=== PATIENT | female | born 1970 | race Caucasian/White ===

== ENCOUNTER 2017-01-05 19:37 | Emergency (ER) | payer MEDICARE, SELFPAY ==
[~2017-01-05] VITALS: Ht 167.6 cm; Wt 97.9 kg
[~2017-01-05 19:37] MED LIST: ACET65TA OR; CALCTAB22 PO; CIPR500T19 OR; FLAG500T OR; MULTIVIT PO; metamucil PO; pentasa PO
[2017-01-05] MEDS ORDERED: ESTR2TA (19:44)
[2017-01-05] MEDS ORDERED: CITA40TA4 (19:44)
[2017-01-05] MEDS ORDERED: MERC50TA2 (19:44)
[2017-01-05] MEDS ORDERED: methylPREDNISolone INJ 125 MG/2 ML VIAL (J2930) IV ONE (20:15)
[2017-01-05] MEDS ORDERED: NS 1,000 ML IV ONE (20:15)
[2017-01-05] MEDS ORDERED: KETOROLAC 30 MG/ML VIAL (J1885) IV ONE (20:15)
[2017-01-05] MEDS ORDERED: NORCO, ANEXSIA 5/325MG TABLET (HYDROcodone/ACETAMINOPHEN) PO ONE ×2 (20:15→22:45)
[2017-01-05 20:41] LABS: BASO % 0.2 % (0.0-1.0); EOS # 0.1 K/mm3 (0.0-0.50); EOS % 1.1 % (0.0-3.0); LARGE UNSTAINED CELL # 0.1 K/mm3 (0.0-0.4); LARGE UNSTAINED CELL % 1.1 % (0.0-4.0); LYMPH # 1.3 K/mm3 (1.5-4.5); LYMPH % 11.8 % (24.0-44.0); MEAN CORPUSCULAR HEMOGLOBIN 33.5 pg (27.0-33.0); MEAN CORPUSCULAR HGB CONC 35.8 g/dl (32.0-36.5); MEAN CORPUSCULAR VOLUME 93.5 fl (80.0-96.0); MONO # 0.5 K/mm3 (0.0-0.8); MONO % 4.7 % (0.0-5.0); NEUTROPHILS # 8.1 K/mm3 (1.8-7.7); NEUTROPHILS % 81.1 % (36.0-66.0); PLATELET COUNT, AUTOMATED 234 k/mm3 (150-450); RED CELL DISTRIBUTION WIDTH 13.3 % (11.5-14.5); WHITE BLOOD COUNT 9.9 K/mm3 (4.0-10.0)
[2017-01-05 20:48] LABS: CALCIUM OXALATE CRYSTALS LARGE
[2017-01-05 20:56] LABS: ALBUMIN 4.1 GM/DL (3.2-5.2); ALBUMIN/GLOBULIN RATIO 1.21 (1.00-1.93); ALKALINE PHOSPHATASE 56 U/L (45-117); ALT/SGPT 74 U/L (12-78); ANION GAP 8 MEQ/L (8-16); AST/SGOT 21 U/L (15-37); BILIRUBIN,DIRECT 0.2 MG/DL (0.0-0.2); BLOOD UREA NITROGEN 10 MG/DL (7-18); CALCIUM LEVEL 9.4 MG/DL (8.5-10.1); CARBON DIOXIDE LEVEL 29 MEQ/L (21-32); CHLORIDE LEVEL 103 MEQ/L (98-107); CREATININE FOR GFR 0.76 MG/DL (0.55-1.02); GLOMERULAR FILTRATION RATE > 60.0 (>58); GLUCOSE, FASTING 104 MG/DL (70-105); POTASSIUM SERUM 3.5 MEQ/L (3.5-5.1); SODIUM LEVEL 140 MEQ/L (136-145); TOTAL PROTEIN 7.5 GM/DL (6.4-8.2)
[2017-01-05] MEDS ORDERED: PANTOPRAZOLE 40MG INJ (PROTONIX) (C9113) IV ONE (21:00)
--- NOTE | 2017-01-05 22:20 | REPUSA ---
Clinical history: hematuria. Findings: The urinary bladder is contracted, but appears unremarkable. No urinary bladder masses are seen. The right kidney measures 13.1 x 5.1 x 5.6 cm. There is a 3.6 cm cyst in the right kidney. The left kidney measures. 14.6 x 6.4 x 5.8 Cm. The kidneys demonstrate normal echotexture and echogenici ty. There is no evidence of hydronephrosis or nephrolithiasis. No renal masses are seen. No free flui d is appreciated. Impression: Unremarkable ultrasound examination of the kidneys, other than a simple right renal cyst.
[2017-01-05] MEDS ORDERED: PRED20TA PO (22:37)
[2017-01-05] MEDS ORDERED: NORCOTAB PO (22:37)
[2017-01-05 22:42] VITALS: BP 132/93
== END 2017-01-05 22:54 | disposition home or self-care (01) ==
LOC: M ED 20:42
DX: R10.9 Unspecified abdominal pain (principal); N28.1 Cyst of kidney, acquired; Z87.19 Personal history of other diseases of the digestive system; F32.9 Major depressive disorder, single episode, unspecified; Z79.899 Other long term (current) drug therapy; Z88.1 Allergy status to other antibiotic agents
CPT/HCPCS: 76775; 80048; 80076; 81001; 83605; 83690; 85025; 86140; 96374; 96375; 99284; C9113; J1885; J2930

== ENCOUNTER → 2019-03-26 | Outpatient (CLI) | payer OTHER ==
[~2019-03-26] MED LIST changes: +ACET650T15 PO; +CALC500T44 PO; +CARB200T98 PO; +CITA40TA4; +CITA40TA4 PO; +CYCL5TAB PO; +ESTR2TAB2; +ESTR2TAB2 PO; +HYDR-3713 PO; +HYDR-3715 PO; +KETO10TAB PO; +LOPE2CA PO; +MERC50TA2; +MERC50TA2 PO; +MULTCAP PO; +PENI500T; +PRED20TA PO; +QC F0.52 PO
== END ==
LOC: M LAB 11:28
PROVIDERS: ATTEND Internal Medicine Gastroenterology
DX: K50.018 Crohn's disease of small intestine with other complication (principal)

== ENCOUNTER 2019-03-29 21:47 | Emergency (ER) | payer OTHER ==
[~2019-03-29] VITALS: Ht 167.6 cm; Wt 98.2 kg
[~2019-03-29 21:47] MED LIST changes: -ACET650T15 PO; -CALC500T44 PO; -CARB200T98 PO; -CITA40TA4 PO; -CYCL5TAB PO; -ESTR2TAB2 PO; -HYDR-3713 PO; -KETO10TAB PO; -LOPE2CA PO; -MERC50TA2 PO; -MULTCAP PO; -PENI500T; -QC F0.52 PO
[2019-03-29] MEDS ORDERED: PENI500T (21:57)
[2019-03-29] MEDS: CYCLOBENZAPRINE 10 MG TAB PO ONE (22:46)
[2019-03-29] MEDS: KETOROLAC TROMETHAMINE 10 MG TAB PO ONE (22:46)
[2019-03-29 23:00] LABS: BASO % 0.4 % (0.0-1.0); EOS # 0.1 10^3/uL (0.0-0.5); EOS % 0.9 % (0.0-3.0); HEMATOCRIT 46.5 % (36.0-47.0); HEMOGLOBIN 16.2 g/dl (12.0-15.5); LYMPH # 1.8 10^3/uL (1.5-5.0); LYMPH % 20.1 % (24.0-44.0); MEAN CORPUSCULAR HEMOGLOBIN 32.1 pg (27.0-33.0); MEAN CORPUSCULAR HGB CONC 34.8 g/dl (32.0-36.5); MEAN CORPUSCULAR VOLUME 92.1 fl (80.0-96.0); MONO # 0.5 10^3/uL (0.0-0.8); MONO % 5.1 % (0.0-5.0); NEUTROPHILS # 6.7 10^3/uL (1.5-8.5); PLATELET COUNT, AUTOMATED 323 10^3/uL (150-450); RED BLOOD COUNT 5.05 10^6/uL (4.00-5.40); WHITE BLOOD COUNT 9.1 10^3/uL (4.0-10.0)
[2019-03-29 23:20] LABS: MONO SCRN NEGATIVE (NEGATIVE)
[2019-03-29] MEDS: BUPIVACAINE HCL 0.25% 10 ML VIAL IM ONE (23:59)
[2019-03-30] MEDS ORDERED: CYCL5TAB PO (00:12)
[2019-03-30] MEDS ORDERED: KETO10TAB PO (00:12)
[2019-03-30 00:24] VITALS: BP 137/92
== END 2019-03-30 00:29 | disposition home or self-care (01) ==
LOC: M ED 21:47
DX: M62.838 Other muscle spasm (principal); M54.2 Cervicalgia; F32.9 Major depressive disorder, single episode, unspecified; Z79.899 Other long term (current) drug therapy; Z88.1 Allergy status to other antibiotic agents; Z87.09 Personal history of other diseases of the respiratory system; Z86.19 Personal history of other infectious and parasitic diseases

== ENCOUNTER → 2019-04-12 | Outpatient (CLI) | payer OTHER ==
[~2019-04-12] MED LIST changes: +ACET650T15 PO; +CALC500T44 PO; +CARB200T98 PO; +CITA40TA4 PO; +CYCL5TAB PO; +ESTR2TAB2 PO; +HYDR-3713 PO; +KETO10TAB PO; +LOPE2CA PO; +MERC50TA2 PO; +MULTCAP PO; +PENI500T; +QC F0.52 PO
--- NOTE | 2019-04-13 07:54 | REP ---
CERVICAL SPINE COMPLETE: 04/12/2019. Clinical history: Neck pain. Findings: No prior studies. Eight views are provided. Lateral view shows slight loss of lordosis. Flexion and extension views show adequate range of motion but no instability. C1-2 relationships are normal throughout and stable. Craniocervical junction aligns normally. Vertebral body heights, disc space heights and prevertebral soft tissues are unremarkable. Posterior elements grossly intact. Dens and lateral masses align normally on the open-mouth view AP view shows no torticollis. Posterior elements intact. The bilateral foramina are ample. Impression: 1. Slight loss of lordosis on the lateral view but good range of motion with flexion and extension. No instability. The C1-2 relationships normal throughout. 2. Disc space heights normal. No compression deformity. 3. Foramina ample. Nothing acute. Electronically Signed by Daryn Delgado MD 04/13/2019 09:21 A
== END ==
LOC: M RAD 09:34
PROVIDERS: ATTEND Internal Medicine
DX: M54.2 Cervicalgia (principal)

== ENCOUNTER 2019-04-13 18:50 | Inpatient (IN) | payer OTHER ==
[~2019-04-13] VITALS: Ht 167.6 cm; Wt 97.8 kg
[~2019-04-13 18:50] MED LIST changes: -ACET650T15 PO; -CALC500T44 PO; -CARB200T98 PO; -CITA40TA4 PO; -ESTR2TAB2 PO; -HYDR-3713 PO; -LOPE2CA PO; -MERC50TA2 PO; -MULTCAP PO; -QC F0.52 PO
[2019-04-13] MEDS ORDERED: CARB200T98 PO (18:57)
[2019-04-13 20:16] LABS: BASO % 0.4 % (0.0-1.0); EOS # 0.1 10^3/uL (0.0-0.5); HEMATOCRIT 46.7 % (36.0-47.0); HEMOGLOBIN 15.9 g/dl (12.0-15.5); LYMPH # 1.9 10^3/uL (1.5-5.0); LYMPH % 27.4 % (24.0-44.0); MEAN CORPUSCULAR HEMOGLOBIN 31.9 pg (27.0-33.0); MEAN CORPUSCULAR VOLUME 93.6 fl (80.0-96.0); MONO # 0.4 10^3/uL (0.0-0.8); MONO % 5.6 % (0.0-5.0); NEUTROPHILS # 4.4 10^3/uL (1.5-8.5); NEUTROPHILS % 65.2 % (36.0-66.0); PLATELET COUNT, AUTOMATED 266 10^3/uL (150-450); RED BLOOD COUNT 4.99 10^6/uL (4.00-5.40); WHITE BLOOD COUNT 6.7 10^3/uL (4.0-10.0)
[2019-04-13] MEDS ORDERED: NS 500 ML IV ONE (20:30)
[2019-04-13] MEDS ORDERED: HYDROMORPHONE HCL 0.5 MG/ 0.5 ML SYRINGE (J1170 PER 1) IV ONE (20:30)
[2019-04-13 20:45] LABS: ALBUMIN 3.1 GM/DL (3.2-5.2); ALT/SGPT 19 U/L (12-78); AMYLASE 30 U/L (25-115); BILIRUBIN,DIRECT < 0.1 MG/DL (0.0-0.2); BILIRUBIN,TOTAL 0.3 MG/DL (0.2-1.0); LIPASE 124 U/L (73-393); TOTAL PROTEIN 6.7 GM/DL (6.4-8.2)
[2019-04-13] MEDS: METAMUCIL (PSYLLIUM) PACKET PO SCH (21:00)
[2019-04-13] MEDS: GASTROGRAFIN SOLUTION 30ML PO SCH ×2 (21:07→21:39)
[2019-04-13 21:48] LABS: BLOOD UREA NITROGEN 12 MG/DL (7-18); CALCIUM LEVEL 8.8 MG/DL (8.5-10.1); CARBON DIOXIDE LEVEL 31 MEQ/L (21-32); CHLORIDE LEVEL 105 MEQ/L (98-107); GLOMERULAR FILTRATION RATE > 60.0 (>58); GLUCOSE, FASTING 97 MG/DL (70-100); SODIUM LEVEL 142 MEQ/L (136-145)
[2019-04-13] MEDS ORDERED: ISOVUE-370 76% 100ML VIAL (Q9967) As Ordered ONE (22:23)
--- NOTE | 2019-04-13 23:59 | REPVR ---
PROCEDURE INFORMATION: Exam: CT Abdomen and pelvis with contrast Exam date and time: 04/13/2019 10:27 PM Clinical history: 48 years old, female; Abdominal pain; Additional info: Crohn's/pain TECHNIQUE: Imaging protocol: Computed tomography of the abdomen and pelvis with intravenous contrast. Radiation optimization: All CT scans at this facility use at least one of these dose optimization techniques: automated exposure control; mA and/or kV adjustment per patient size (includes targeted exams where dose is matched to clinical indication); or iterative reconstruction. Contrast material: ISO 370; Contrast volume: 100 ml; Contrast route: IV; COMPARISON: US PELVIC NON-OB COMPLETE 01/27/2016 1:33 PM FINDINGS: Liver: Normal. No mass. Gallbladder and bile ducts: Normal. No calcified stones. No ductal dilation. Pancreas: Normal. No ductal dilation. Spleen: Normal. No splenomegaly. Adrenals: Normal. No mass. Kidneys and ureters: There is a cyst in the right kidney. Kidneys are otherwise unremarkable. No hydronephrosis or solid masses. Stomach and bowel: Prior subtotal colectomy. Small bowel loops in the pelvis are mildly thickwalled with mucosal enhancement and are distended with some intraluminal fluid. The distal small bowel leading to the enterocolic anastomosis is narrowed with some mural edema and mild stranding in the adjacent mesentery. Some areas of segmental narrowing are noted in the thickwalled segment in the pelvis. Similar milder changes in the right lower quadrant small bowel. Proximal small bowel loops and stomach are grossly unremarkable. Mild diverticulosis in the residual colon without colonic dilation or inflammatory changes. Midline anterior abdominal wall hernia containing peritoneal fat and nonobstructed small bowel. Appendix: There has been prior appendectomy. Intraperitoneal space: Unremarkable. No free air. No significant fluid collection. Vasculature: Unremarkable. No abdominal aortic aneurysm. Lymph nodes: Unremarkable. No enlarged lymph nodes. Bladder: Unremarkable as visualized. Reproductive: Unremarkable as visualized. Bones/joints: There are degenerative changes in the spine and pelvis. Soft tissues: Unremarkable. IMPRESSION: 1. Wall thickening with areas of dilated fluid-filled small bowel and mild segmental narrowing in the distal small bowel consistent with history of Crohn's disease. 2. Long segment stricture of the distal small bowel at the enterocolic anastomosis measuring approximate 6 cm. 3. No perforation or abscess. COMMENT: Consistent with the [employer]'s Incidental Findings Committee Report (J Am Moises Radiol 2010): Unless the patient's specific circumstances suggest otherwise, any liver lesion 0.5 cm or less, any cystic kidney lesion less than 1.0 cm, and/or any adrenal lesion 1.0 cm or less not otherwise characterized in this report as possessing suspicious or indeterminate imaging features is/are highly likely to be benign and do not require follow-up imaging or biopsy. Electronically signed by: Itz Fontenot On 04/13/2019 23:58:57 PM
[2019-04-14] MEDS ORDERED: HYDROMORPHONE HCL 0.5 MG/ 0.5 ML SYRINGE (J1170 PER 1) IV ONE (00:15)
[2019-04-14] MEDS ORDERED: MULTCAP PO (00:15)
[2019-04-14] MEDS ORDERED: MERC50TA2 PO (00:30)
[2019-04-14] MEDS ORDERED: CALC500T44 PO (00:30)
[2019-04-14] MEDS ORDERED: CITA40TA4 PO (00:30)
[2019-04-14] MEDS ORDERED: D5W/0.9% SODIUM CHLORIDE 1,000 ML IV SCH (00:30)
[2019-04-14] MEDS ORDERED: ESTR2TAB2 PO (00:30)
[2019-04-14] MEDS ORDERED: ACET650T15 PO (00:30)
[2019-04-14] MEDS ORDERED: QC F0.52 PO (00:30)
--- NOTE | 2019-04-14 00:32 | HPEPDOC ---
[facility] Medical History & Physical Date of Admission Apr 14, 2019 Date of Service: Apr 14, 2019 Primary Care Physician: Maxim Smith MD [facility] Attending Physician: SAVANAH HUGO MD History and Physical TIME OF SERVICE: 12:55 AM CHIEF COMPLAINT: abdominal pain HISTORY OF PRESENT ILLNESS: This is a 48 yr old F who presents with complaints of 7/10 in severity, mid- abdominal, nonradiating, relapsing and remitting pain. She has had the pain for a few days but came to the hospital today because the pain became so bad that she became nauseous. She denies vomiting and denies having fevers. On average she has 6 bowel movements per day and denies an increase in frequency of bowel movements over the last few days. Yesterday she didn't take any of her medications including mercaptopurine. She doesn't take loperamide and uses fiber capsules. She reports having constant hip pain which hasn't changed in severity, denies having eye pain or sensitivity to light, denies having a rash, and denies having anal fissures recently. She had oral ulcers about a week ago which she attributes to having strep throat. REVIEW OF SYSTEMS: 12 point review of systems negative except as listed in HPI PAST MEDICAL/ SURGICAL HISTORY: Crohn s/p right hemicolectomy Nephrolithiasis status post lithotripsy History of renal fistula Denies personal history of diabetes, CVA, or IA SOCIAL HISTORY: Smoker. Quit drinking because it made her chronic stomach pain worse Occasionally uses marijuana to control stomach pain FAMILY HISTORY: Her aunt has diabetes. She denies a family history of Crohn's ALLERGIES: Please see below. HOME MEDICATIONS: Please see below. PHYSICAL EXAMINATION: VITAL SIGNS: Please see below. GENERAL APPEARANCE: Well-nourished, well-developed, does not appear toxic HEENT: Normocephalic, atraumatic, mucous membranes moist and pink CARDIOVASCULAR: Regular rate and rhythm. No murmurs, rubs or gallops LUNGS: Clear auscultation bilaterally on room air ABDOMEN: Bowel sounds are present, the abdomen is tympanic on percussion, it's soft, she grimaces with palpation of the epigastrium MUSCULOSKELETAL: Range of motion intact in all 4 extremities INTEGUMENT: She has tattoos on her legs, NEUROLOGICAL: Cranial nerves II-12 are grossly intact. Speech is not dysarthric PSYCHIATRIC: Alert and oriented person, place and time, able to understand and follow commands LABORATORY DATA: See below. IMAGING: CT abdomen "IMPRESSION: 1. Wall thickening with areas of dilated fluid-filled small bowel and mild segmental narrowing in the distal small bowel consistent with history of Crohn's disease. 2. Long segment stricture of the distal small bowel at the enterocolic anastomo sis measuring approximate 6 cm. 3. No perforation or abscess. " MICROBIOLOGY: Please see below. ASSESSMENT: Ms. Gomez is a 48-year-old female with a past medical history of Crohn's presents with complaints of worsening of her acute abdominal pain; she'll be admitted for management of abdominal pain possibly due to mild Crohn's flare PLAN: 1.Abdominal pain possibly due to mild Crohn's flare ? She didn't take her meds today. LFTs, UA and lactic acid unremarkable CT of abdomen did not show any acute process Crohn's Disease Activity Index (CDAI) score = 132 = asymptomatic remission Plan: Admit to GMF/ low residue diet/IV fluids/will give 1 dose of Solu-Medrol now / resume mercaptopurine & psyllium/ add loperamide / Ibuprofen for abdominal pain / supervisor slitting and shipping consult to discuss Crohn's diet / SW consult for referal to local IBD/Crohn's support group 2.Tobacco abuse. Plan: Denied nicotine patch patch/tobacco cessation education 3.Obesity -BMI 33.8 Plan: f/u A1C / can f/u w PCP for STOP BANG questionnaire supervisor slitting and shipping consult & referral for Bariatric surgery / recommend cardiovascular exercise for 40 min 4- 5 days a week DVT prophylaxis with SCDs. Disposition: Pending clinical course Vital Signs Vital Signs Date Time Temp Pulse Resp B/P (MAP) Pulse Ox O2 Delivery O2 Flow Rate FiO2 04/14/19 00:16 18 04/13/19 23:43 96.5 68 110/73 (85) 98 04/13/19 18:51 Room Air Laboratory Data Labs 24H Laboratory Tests 2 04/13/19 19:51: POC Glucose (Misc Panel) 103, POC Sodium (Misc Panel) 138, POC Potassium (Misc Panel) 6.5*H, POC Chloride (Misc Panel) 101, POC Total CO2 (Misc Panel) 34.0H, POC Blood Urea Nitrogen (Misc Panel 16, POC Ionized Calcium (Misc Panel) 4.2L, POC Creatinine (Misc Panel) 0.7, POC Hematocrit (Misc Panel) 45.0 04/13/19 19:52: Immature Granulocyte % (Auto) 0.4, White Blood Count 6.7, Red Blood Count 4.99, Hemoglobin 15.9H, Hematocrit 46.7, Mean Corpuscular Volume 93.6, Mean Corpuscular Hemoglobin 31.9, Mean Corpuscular Hemoglobin Concent 34.0, Red Cell Distribution Width 13.1, Platelet Count 266, Neutrophils (%) (Auto) 65.2, Lymphocytes (%) (Auto) 27.4, Monocytes (%) (Auto) 5.6H, Eosinophils (%) (Auto) 1.0, Basophils (%) (Auto) 0.4, Neutrophils # (Auto) 4.4, Lymphocytes # (Auto) 1.9, Monocytes # (Auto) 0.4, Eosinophils # (Auto) 0.1, Basophils # (Auto) 0.0, Nucleated Red Blood Cells % (auto) 0.0, Anion Gap 6L, Glomerular Filtration Rate > 60.0, Calcium Level 8.8, Aspartate Amino Transf (AST/SGOT) 22, Alanine Aminotransferase (ALT/SGPT) 19, Alkaline Phosphatase 71, Total Bilirubin 0.3, Direct Bilirubin < 0.1, Total Protein 6.7, Albumin 3.1L, Albumin/Globulin Ratio 0.86L, Amylase Level 30, Lipase 124 04/13/19 22:52: Urine Color YELLOW, Urine Appearance CLEAR, Urine pH 6.0, Urine Specific [place] 1.053, Urine Protein NEGATIVE, Urine Glucose (UA) NEGATIVE, Urine Ketones NEGATIVE, Urine Blood 2+H, Urine Nitrite NEGATIVE, Urine Bilirubin NEGATIVE, Urine Urobilinogen 0.2, Urine Leukocyte Esterase NEGATIVE, Urine WBC (Auto) 0, Urine RBC (Auto) 19H, Urine Hyaline Casts (Auto) 0, Urine Bacteria (Auto) NEGATIVE, Urine Squamous Epithelial Cells 5, Urine Sperm (Auto) CBC/BMP Laboratory Tests 04/13/19 19:52 Red Blood Count 4.99, Mean Corpuscular Volume 93.6, Mean Corpuscular Hemoglobin 31.9, Mean Corpuscular Hemoglobin Concent 34.0, Red Cell Distribution Width 13.1, Neutrophils (%) (Auto) 65.2, Lymphocytes (%) (Auto) 27.4, Monocytes (%) (Auto) 5.6 H, Eosinophils (%) (Auto) 1.0, Basophils (%) (Auto) 0.4, Neutrophils # (Auto) 4.4, Lymphocytes # (Auto) 1.9, Monocytes # (Auto) 0.4, Eosinophils # (Auto) 0.1, Basophils # (Auto) 0.0 Home Medications Scheduled Calcium Carbonate/Vitamin D3 (Calcium 500-Vit D3 200 Tablet) 1 Each Tablet, 1 TAB PO DAILY Carbamazepine (Carbamazepine ER) 200 Mg Tab.er.12h, 200 MG PO BID Citalopram Hydrobromide (Citalopram HBr) 40 Mg Tablet, 40 MG PO DAILY Estradiol (Estradiol) 2 Mg Tablet, 2 MG PO DAILY Mercaptopurine (Mercaptopurine) 50 Mg Tablet, 50 MG PO DAILY Multivitamin (Multivitamins) 1 Each Capsule, 1 CAP PO DAILY Psyllium Husk (Fiber) 0.52 Gm Capsule, 0.52 GM PO DAILY Scheduled PRN Acetaminophen (Acetaminophen ER) 650 Mg Tablet.er, 650 MG PO Q6H PRN for PAIN Allergies Coded Allergies: erythromycin base (Verified Allergy, Intermediate, rash, 03/29/19) A-FIB/CHADSVASC A-FIB History Current/History of A-Fib/PAF?: No Current PO Anticoag Therapy: No SAVANAH HUGO MD Apr 14, 2019 00:32
[2019-04-14] MEDS ORDERED: methylPREDNISolone INJ 125 MG/2 ML VIAL (J2930) IV ONE (00:45)
[2019-04-14] MEDS: NS 1,000 ML IV SCH ×3 (01:03→13:52)
[2019-04-14 02:32] VITALS: BP 112/82
[2019-04-14] MEDS: LOPERAMIDE 2 MG CAP PO SCH ×3 (02:45→21:54)
[2019-04-14] MEDS: carBAMazepine XR 200 MG TAB PO SCH ×3 (02:47→21:54)
[2019-04-14] MEDS: ACETAMINOPHEN 650MG ER TAB (TYLENOL ARTHRITIS) PO PRN ×2 (05:54→21:54)
[2019-04-14] MEDS: IBUPROFEN 600 MG TAB PO PRN ×2 (05:54→21:54)
[2019-04-14 06:00] VITALS: BP 113/82
[2019-04-14 06:41] LABS: BASO % 0.1 % (0.0-1.0); EOS % 0.1 % (0.0-3.0); HEMATOCRIT 41.2 % (36.0-47.0); HEMOGLOBIN 14.1 g/dl (12.0-15.5); LYMPH # 0.5 10^3/uL (1.5-5.0); LYMPH % 7.5 % (24.0-44.0); MEAN CORPUSCULAR HEMOGLOBIN 31.5 pg (27.0-33.0); MEAN CORPUSCULAR HGB CONC 34.2 g/dl (32.0-36.5); MEAN CORPUSCULAR VOLUME 92.2 fl (80.0-96.0); MONO # 0.1 10^3/uL (0.0-0.8); MONO % 1.2 % (0.0-5.0); NEUTROPHILS # 6.3 10^3/uL (1.5-8.5); NEUTROPHILS % 90.8 % (36.0-66.0); PLATELET COUNT, AUTOMATED 224 10^3/uL (150-450); RED BLOOD COUNT 4.47 10^6/uL (4.00-5.40)
[2019-04-14 07:10] LABS: BLOOD UREA NITROGEN 8 MG/DL (7-18); CALCIUM LEVEL 8.6 MG/DL (8.5-10.1); CARBON DIOXIDE LEVEL 31 MEQ/L (21-32); CHLORIDE LEVEL 105 MEQ/L (98-107); CREATININE FOR GFR 0.63 MG/DL (0.55-1.30); GLOMERULAR FILTRATION RATE > 60.0 (>58); GLUCOSE, FASTING 124 MG/DL (70-100); POTASSIUM SERUM 4.5 MEQ/L (3.5-5.1); SODIUM LEVEL 139 MEQ/L (136-145)
[2019-04-14] MEDS: METAMUCIL (PSYLLIUM) PACKET PO SCH ×2 (09:00→21:00)
[2019-04-14] MEDS ORDERED: INFLUENZA QUADRIVALENT PEDIATRIC PF VACCINE 0.25ML SYR (90685) IM ONE (09:00)
[2019-04-14] MEDS ORDERED: ENOXAPARIN 40 MG/0.4 ML SYRINGE (J1650) SC SCH (09:00)
[2019-04-14] MEDS ORDERED: INFLUENZA QUADRIVALENT PF VACCINE 0.5ML SYRINGE (90686) IM ONE (09:00)
[2019-04-14] MEDS: ESTRADIOL 1 MG TAB PO SCH (09:26)
[2019-04-14] MEDS: CitaloPRAM (CeleXA) 20 MG TAB PO SCH (09:26)
[2019-04-14] MEDS: CALCIUM/VITAMIN D 500 MG TAB PO SCH (09:26)
[2019-04-14 13:59] VITALS: BP 132/88
[2019-04-14] MEDS ORDERED: PERCOCET 5MG/325MG TAB PO ONE (16:00)
--- NOTE | 2019-04-14 16:41 | IPNPDOC ---
Date Seen The patient was seen on 04/14/19. Progress Note SUBJECTIVE: Mer was seen and examined today while lying upright in bed. She states that her overall pain has significantly improved from where it was upon presentation yesterday (04/13). She does currently feel "full" after eating Cheerios, toast and north for breakfast. Soon after breakfast, she did have some post-meal abdominal pain in the same distribution of her abdominal pain yesterday, but it resolved. She has resumed taking her mercaptopurine and is now also taking loperamide. She denies Metamucil. She is using ibuprofen and Tylenol for abdominal pain. Patient has not had any bowel movements since admission. The day before her ED presentation, she had an overabundance of BMs. She denies feeling feverish, chills, night sweats, chest pain, chest pressure, palpitations, shortness of breath, cough, feeling nauseated, vomiting, dysuria, hematuria, lower extremity edema, or paresthesias. OBJECTIVE PHYSICAL EXAMINATION: VITAL SIGNS: Please see below. GENERAL: Mer is a cooperative, awake, alert and oriented 3, middle-age woman who does not appear to be in any acute distress. She is resting comfortably in bed. She responds to questions and commands properly. HEENT: Atraumatic, normocephalic. Neck is supple. Trachea is midline. There is no cervical or supraclavicular lymphadenopathy on palpitation. CARDIOVASCULAR: Regular rate and rhythm. Normal S1, S2. No murmurs or gallops appreciated. 2+ radial and posterior tibial pulses palpated bilaterally. No lower extremity edema. RESPIRATORY: Lungs are clear to auscultation bilaterally, anteriorly and posteriorly. There is good respiratory effort. There is symmetric chest expansion. There is no visible accessory muscle use. There are no retractions. ABDOMINAL: Soft, obese, and nondistended. Right lower quadrant is tender to deep palpation. There are abdominal striae present on inspection. There is no rebou nd, guarding or rigidity. There is no dullness to percussion. Normoactive bowel sounds are present. There is no hepatomegaly or splenomegaly. There are no masses appreciated on palpation. EXTREMITIES: 5 out of 5 muscle strength testing upper extremities and lower extremities bilaterally. There is no clubbing or cyanosis of fingers bilaterally. NEUROLOGICAL: Patient is awake, alert and oriented 3. She responds appropriately to questions and commands. Sensation to light touch is intact upper extremity and lower extremity, bilaterally. PSYCHOLOGICAL: Appropriate mood and appropriate affect. LABORATORY DATA, IMAGING STUDIES, MICROBIOLOGY: Please see below. Abdominal/pelvis CT, 04/13: Wall thickening with areas of dilated fluid-filled small bowel and mild segmental narrowing in the distal small bowel consistent with history of Crohn's disease. Long segment stricture of the distal small bowel at the enterocolic anastomosis measuring approximate 6 cm. No perforation or abscess. ASSESSMENT AND PLAN: This is a 48-year-old female with pertinent past medical history of Crohn's disease who presented to the emergency department yesterday (04/13) was 7/10 mid abdominal, non-radiating pain that was present for the past few days. She also had an increase in bowel movement frequency over the past few days. On day of presentation, she began to feel nauseated. Patient has a history of recurrent Crohn's flares. She did not take any of her Crohn's disease medications on 04/12, including mercaptopurine. Abdominal pelvis CT showed wall thickening and dilated small bowel that was fluid-filled, as well as narrowing in the distal small bowel, consistent with patient's history of Crohn's disease. There was also a long segment stricture of distal small bowel about 6 cm in length. Patient was admitted for monitoring and care. The direction of hospice team. UA, transaminases, and lactic acid all normal. All were normal. She was placed on a low residue diet, her mercaptopurine was resumed and loperamide was added. Ibuprofen and Tylenol were made available for abdominal pain. She was given a one-time site Solu-Medrol stat administration in the emergency department. A social work referral for Crohn's support group was made. On 04/14, patient's abdominal pain was greatly improved. She no longer was feeling nauseated. After both breakfast and lunch, she did have return of abdominal pain and discomfort. Patient received an influenza vaccination. We're continuing her IV fluids as well as initiating daily, 30 mg po prednisone. #Acute abdominal pain secondary to flare of Crohn's disease -Patient's abdominal pain or discomfort is significantly improved today as compared to yesterday and the preceding few days -We are continuing her IV fluid in the form of normal saline -Patient is being administered po prednisone 30 mg daily with her only previous steroid dosing a one-time Solu-Medrol in the ED yesterday -Patient receiving loperamide and mercaptopurine, calcium/vitamin D, and fiber capsules -Continue to monitor patient's I's and O's, as well as morning CBC and metabolic panels. -Patient is on a low residue diet, but has had some recurrence of abdominal pain after relatively heavy breakfast and lunch meals today. Abdominal pain after lunch was more pronounced than breakfast, and patient was given one-time dose of Percocet 5/325 po -Dietitian attempted to visit patient twice a day, but patient states she was too tired to have a discussion. Per nursing dietitian will try to speak with patient tomorrow morning. #Obesity -BMI is 34.2 -Dietitian attempted to visit patient twice a day, but patient states she was too tired to have a discussion. Per nursing dietitian will try to speak with patient tomorrow morning. #History of tobacco abuse -Patient is a current smoker #History of marijuana use -Patient admits to occasionally using marijuana for her Crohn's disease associated stomach pain DVT prophylaxis: Teds and sequentials were ordered upon admission. Disposition: Hospitalist team will continue monitoring and assessing patient for changes in symptomatology. If she continues to progress without symptom recurrence, patient potentially could be discharged tomorrow. I saw and evaluated the patient. Discussed with the resident and agree with resident's findings and plan as documented in the resident's note VS, I&O, 24H, Fishbone Vital Signs/I&O Vital Signs Date Time Temp Pulse Resp B/P (MAP) Pulse Ox O2 Delivery O2 Flow Rate FiO2 04/14/19 16:18 18 04/14/19 13:59 98.2 87 132/88 (103) 98 04/13/19 18:51 Room Air I&O- Last 24 Hours up to 6 AM 04/14/19 06:00 Intake Total 750 ml Output Total 350 ml Balance 400 ml Laboratory Data 24H LABS Laboratory Tests 2 04/13/19 19:51: POC Glucose (Misc Panel) 103, POC Sodium (Misc Panel) 138, POC Potassium (Misc P [place]) 6.5*H, POC Chloride (Misc Panel) 101, POC Total CO2 (Misc Panel) 34.0H, POC Blood Urea Nitrogen (Misc Panel 16, POC Ionized Calcium (Misc Panel) 4.2L, POC Creatinine (Misc Panel) 0.7, POC Hematocrit (Misc Panel) 45.0 04/13/19 19:52: Immature Granulocyte % (Auto) 0.4, White Blood Count 6.7, Red Blood Count 4.99, Hemoglobin 15.9H, Hematocrit 46.7, Mean Corpuscular Volume 93.6, Mean Corpuscular Hemoglobin 31.9, Mean Corpuscular Hemoglobin Concent 34.0, Red Cell Distribution Width 13.1, Platelet Count 266, Neutrophils (%) (Auto) 65.2, Lymphocytes (%) (Auto) 27.4, Monocytes (%) (Auto) 5.6H, Eosinophils (%) (Auto) 1.0, Basophils (%) (Auto) 0.4, Neutrophils # (Auto) 4.4, Lymphocytes # (Auto) 1.9, Monocytes # (Auto) 0.4, Eosinophils # (Auto) 0.1, Basophils # (Auto) 0.0, Nucleated Red Blood Cells % (auto) 0.0, Anion Gap 6L, Glomerular Filtration Rate > 60.0, Calcium Level 8.8, Aspartate Amino Transf (AST/SGOT) 22, Alanine Aminotransferase (ALT/SGPT) 19, Alkaline Phosphatase 71, Total Bilirubin 0.3, Direct Bilirubin < 0.1, Total Protein 6.7, Albumin 3.1L, Albumin/Globulin Ratio 0.86L, Amylase Level 30, Lipase 124 04/13/19 22:52: Urine Color YELLOW, Urine Appearance CLEAR, Urine pH 6.0, Urine Specific [place] 1.053, Urine Protein NEGATIVE, Urine Glucose (UA) NEGATIVE, Urine Ketones NEGATIVE, Urine Blood 2+H, Urine Nitrite NEGATIVE, Urine Bilirubin NEGATIVE, Urine Urobilinogen 0.2, Urine Leukocyte Esterase NEGATIVE, Urine WBC (Auto) 0, Urine RBC (Auto) 19H, Urine Hyaline Casts (Auto) 0, Urine Bacteria (Auto) NEGATIVE, Urine Squamous Epithelial Cells 5, Urine Sperm (Auto) 04/14/19 06:13: Immature Granulocyte % (Auto) 0.3, White Blood Count 7.0, Red Blood Count 4.47, Hemoglobin 14.1, Hematocrit 41.2, Mean Corpuscular Volume 92.2, Mean Corpuscular Hemoglobin 31.5, Mean Corpuscular Hemoglobin Concent 34.2, Red Cell Distribution Width 13.1, Platelet Count 224, Neutrophils (%) (Auto) 90.8H, Lymphocytes (%) (Auto) 7.5L, Monocytes (%) (Auto) 1.2, Eosinophils (%) (Auto) 0.1, Basophils (%) (Auto) 0.1, Neutrophils # (Auto) 6.3, Lymphocytes # (Auto) 0.5L, Monocytes # (Auto) 0.1, Eosinophils # (Auto) 0.0, Basophils # (Auto) 0.0, Nucleated Red Blood Cells % (auto) 0.0, Anion Gap 3L, Glomerular Filtration Rate > 60.0, Calcium Level 8.6, Blood Urea Nitrogen 8, Creatinine 0.63, Sodium Level 139, Potassium Level 4.5, Chloride Level 105, Carbon Dioxide Level 31 CBC/BMP Laboratory Tests 04/13/19 19:52 Red Blood Count 4.99, Mean Corpuscular Volume 93.6, Mean Corpuscular Hemoglobin 31.9, Mean Corpuscular Hemoglobin Concent 34.0, Red Cell Distribution Width 13.1, Neutrophils (%) (Auto) 65.2, Lymphocytes (%) (Auto) 27.4, Monocytes (%) (Auto) 5.6 H, Eosinophils (%) (Auto) 1.0, Basophils (%) (Auto) 0.4, Neutrophils # (Auto) 4.4, Lymphocytes # (Auto) 1.9, Monocytes # (Auto) 0.4, Eosinophils # (Auto) 0.1, Basophils # (Auto) 0.0 04/14/19 06:13 Red Blood Count 4.47, Mean Corpuscular Volume 92.2, Mean Corpuscular Hemoglobin 31.5, Mean Corpuscular Hemoglobin Concent 34.2, Red Cell Distribution Width 13.1, Neutrophils (%) (Auto) 90.8 H, Lymphocytes (%) (Auto) 7.5 L, Monocytes (%) (Auto) 1.2, Eosinophils (%) (Auto) 0.1, Basophils (%) (Auto) 0.1, Neutrophils # (Auto) 6.3, Lymphocytes # (Auto) 0.5 L, Monocytes # (Auto) 0.1, Eosinophils # (Auto) 0.0, Basophils # (Auto) 0.0, Calcium Level 8.6 SUKHDEV,DANIELLE PGY-1 Apr 14, 2019 16:41 ROBERT REYES MD Apr 15, 2019 07:12
[2019-04-14 21:47] VITALS: BP 131/93
[2019-04-14] MEDS: PERCOCET 5MG/325MG TAB PO PRN (22:48)
[2019-04-15] MEDS: NS 1,000 ML IV SCH (01:06)
[2019-04-15 05:39] VITALS: BP 122/81
[2019-04-15] MEDS: PERCOCET 5MG/325MG TAB PO PRN (06:43)
[2019-04-15 07:14] LABS: BLOOD UREA NITROGEN 9 MG/DL (7-18); CALCIUM LEVEL 8.1 MG/DL (8.5-10.1); CARBON DIOXIDE LEVEL 32 MEQ/L (21-32); CHLORIDE LEVEL 107 MEQ/L (98-107); CREATININE FOR GFR 0.58 MG/DL (0.55-1.30); GLOMERULAR FILTRATION RATE > 60.0 (>58); GLUCOSE, FASTING 86 MG/DL (70-100); MAGNESIUM LEVEL 1.4 MG/DL (1.8-2.4); POTASSIUM SERUM 3.2 MEQ/L (3.5-5.1); SODIUM LEVEL 143 MEQ/L (136-145)
[2019-04-15] MEDS ORDERED: POTASSIUM CHLORIDE 10 MEQ SR TABLET PO ONE (07:45)
[2019-04-15] MEDS ORDERED: predniSONE 10 MG TAB PO SCH (09:00)
[2019-04-15] MEDS: METAMUCIL (PSYLLIUM) PACKET PO SCH (09:00)
[2019-04-15] MEDS: CALCIUM/VITAMIN D 500 MG TAB PO SCH (09:22)
[2019-04-15] MEDS: MAG SULF 1GM/100ML (MAG RUN) 1 GM in IV 1 EA IV SCH ×2 (09:22→10:50)
[2019-04-15] MEDS: CitaloPRAM (CeleXA) 20 MG TAB PO SCH (09:23)
[2019-04-15] MEDS: LOPERAMIDE 2 MG CAP PO SCH (09:23)
[2019-04-15] MEDS: ESTRADIOL 1 MG TAB PO SCH (09:23)
[2019-04-15] MEDS: carBAMazepine XR 200 MG TAB PO SCH (09:23)
[2019-04-15 13:49] VITALS: BP 125/77
[2019-04-15] MEDS ORDERED: MAG SULF 1GM/100ML (MAG RUN) 1 GM in IV 1 EA IV ONE (14:00)
[2019-04-15 14:04] LABS: MAGNESIUM LEVEL 2.1 MG/DL (1.8-2.4); POTASSIUM SERUM 4.1 MEQ/L (3.5-5.1)
[2019-04-15] MEDS ORDERED: HYDR-3713 PO ×2 (14:36→14:38)
[2019-04-15] MEDS ORDERED: LOPE2CA PO (14:36)
--- NOTE | 2019-04-17 17:35 | DS.PDOC ---
Discharge Summary General Date of Admission Apr 14, 2019 at 00:32 Date of Discharge 04/15/2019 Attending Physician: RAMONA HAYES MD Discharge Summary PROCEDURES PERFORMED DURING STAY: None ADMITTING DIAGNOSES: Intractable abdominal pain DISCHARGE DIAGNOSES: Abdominal pain secondary to acute flare of Crohn's disease Obesity, BMI 34.8 History of tobacco abuse History of marijuana use COMPLICATIONS/CHIEF COMPLAINT: Crohn's Disease flare associated HISTORY OF PRESENT ILLNESS & HOSPITAL COURSE: Mer is a 48-year-old female with pertinent past medical history of Crohn's disease who presented to the emergency department on 04/13 with 7/10 mid abdominal, non-radiating pain that was present for a few days prior to ED presentation. She also had an accompanying increase in bowel movement frequency. On day of presentation, she began experiencing nausea. Patient has a history of recurrent Crohn's flares. She did not take any of her Crohn's disease medications on 04/12, including mercaptopurine. Abdominal pelvis CT showed wall thickening and dilated small bowel that was fluid-filled, with narrowing in the distal small bowel and a long segment stricture of distal small bowel about 6 cm in length - - all imaging findings were consistent with features of Crohn's disease. Patient was admitted to the general medical floor for monitoring and medical management under the care of the hospitalist team. UA, transaminases, and lactic acid were ordered and all were normal. She was placed on a low residue diet, her mercaptopurine was resumed and loperamide was added. Ibuprofen and Tylenol were made available for abdominal pain. She was given a one-time site Solu-Medrol stat administration in the emergency department. Once on the general medical floor, daily po prednisone was administered and IV fluids were continued. On the morning of 04/14, patient's abdominal pain was greatly improved. While on a low-residue diet. She still consumed a heavy breakfast and lunch, and her abdominal pain and discomfort. Prn Percocet was prescribed. A dietitian attempted to speak with patient on 04/14, but patient declined to do so stating she was in too much pain. Over the evening and into the morning of 04/15, patient's abdominal pain greatly resolved. Patient had limited herself to very little dinner and breakfast. Patient was prescribed 5 days worth of hydrocodone to use an outpatient basis for pain. A social work referral for Crohn's support group was made. Patient received an influenza vaccination during this admission. Hospitalist team spoke with patient about being smart when he came to her diet, area on the side of low residue, but light foods. It was also explained to patient that the stricture visualized on CT imaging is likely a daily initiator of her recent flare and may require surgical intervention down the road. Patient was instructed to follow-up with her GI physician in [place] and 2-3 weeks. DISCHARGE MEDICATIONS: Please see below. ALLERGIES: Please see below. PHYSICAL EXAMINATION ON DISCHARGE: VITAL SIGNS: Please see below. GENERAL: Mer is a cooperative, awake, alert and oriented 3, middle-age woman who does not appear to be in any acute distress. She is resting comfortably in bed. She responds to questions and commands properly. HEENT: Atraumatic, normocephalic. Neck is supple. Trachea is midline. There is no cervical or supraclavicular lymphadenopathy on palpitation. CARDIOVASCULAR: Regular rate and rhythm. Normal S1, S2. No murmurs or gallops appreciated. 2+ radial and posterior tibial pulses palpated bilaterally. No lower extremity edema. RESPIRATORY: Lungs are clear to auscultation bilaterally, anteriorly and posteriorly. There is good respiratory effort. There is symmetric chest expansion. There is no visible accessory muscle use. There are no retractions. ABDOMINAL: Soft, obese, and nondistended. Right lower quadrant is tender to deep palpation. There are abdominal striae present on inspection. There is no rebound, guarding or rigidity. There is no dullness to percussion. Normoactive bowel sounds are present. There is no hepatomegaly or splenomegaly. There are no masses appreciated on palpation. EXTREMITIES: 5 out of 5 muscle strength testing upper extremities and lower extremities bilaterally. There is no clubbing or cyanosis of fingers bilaterally. NEUROLOGICAL: Patient is awake, alert and oriented 3. She responds appropriately to questions and commands. Sensation to light touch is intact upper extremity and lower extremity, bilaterally. PSYCHOLOGICAL: Appropriate mood and appropriate affect. LABORATORY DATA: Please see below. IMAGING: CT abdomen and pelvis with contrast, 04/13- Wall thickening with areas of dilated fluid-filled small bowel and mild segmental narrowing in the distal small bowel consistent with history of Crohn's disease. Long segment stricture of the distal small bowel at the enterocolic anastomosis measuring approximate 6 cm. No perforation or abscess PROGNOSIS: Good ACTIVITY: As tolerated DIET: Low residue and light diet, increasing slowly and only when tolerated DISPOSITION: 01 Home, Self-Care. DISCHARGE INSTRUCTIONS & ITEMS TO FOLLOWUP ON OUTPATIENT: -Follow-up with gastroenterology physician, Dr. Arturo Geronimo in [place], [place], in the next 2-3 weeks -Follow-up with primary care physician in the next 7-10 days -Maintain a low residue diet that is light at first. Begin to introduce food slowly and only increase as tolerated. -Continue to a fully take mercaptopurine and loperamide as prescribed while outpatient -Bowel stricture visualized on CT imaging was discussed with patient and how this may predispose her to surgery down the line -If symptoms that caused patient to present to hospital for this admission showed return and/or worsen, or if patient should experience an acute emergency of any kind, patient is instructed to return to the emergency department immediately DISCHARGE CONDITION: Stable TIME SPENT ON DISCHARGE: Total time spent on discharge including coordination of care, but not including procedures of any kind, was greater then 35 minutes. Vital Signs/I&Os Vital Signs Date Time Temp Pulse Resp B/P (MAP) Pulse Ox O2 Delivery O2 Flow Rate FiO2 04/15/19 13:49 98.1 125/77 (93) 04/15/19 07:13 18 04/15/19 05:39 61 98 04/13/19 18:51 Room Air Discharge Medications Scheduled Calcium Carbonate/Vitamin D3 (Calcium 500-Vit D3 200 Tablet) 1 Each Tablet, 1 TAB PO DAILY, (Reported) Carbamazepine (Carbamazepine ER) 200 Mg Tab.er.12h, 200 MG PO BID, (Reported) Citalopram Hydrobromide (Citalopram HBr) 40 Mg Tablet, 40 MG PO DAILY, (Rep orted) Estradiol (Estradiol) 2 Mg Tablet, 2 MG PO DAILY, (Reported) Loperamide HCl (Loperamide) 2 Mg Capsule, 4 MG PO BID Mercaptopurine (Mercaptopurine) 50 Mg Tablet, 50 MG PO DAILY, (Reported) Multivitamin (Multivitamins) 1 Each Capsule, 1 CAP PO DAILY, (Reported) Psyllium Husk (Fiber) 0.52 Gm Capsule, 0.52 GM PO DAILY, (Reported) Scheduled PRN Acetaminophen (Acetaminophen ER) 650 Mg Tablet.er, 650 MG PO Q6H PRN for PAIN, (Reported) Hydrocodone/Acetaminophen (Hydrocodone-Acetamin 5-325 mg) 1 Each Tablet, 1 TAB PO BID PRN for pain Allergies Coded Allergies: erythromycin base (Verified Allergy, Intermediate, rash, 03/29/19) DANIELLE SANTIZO PGY-1 Apr 17, 2019 17:35
== END 2019-04-15 15:15 | disposition home or self-care (01) | DRG 387 ==
LOC: M ED 18:50 → M ED INP 04-14 00:32 → M MS5PR 04-14 02:30
PROVIDERS: ADMIT Internal Medicine; ATTEND Internal Medicine
DX: K50.90 Crohn's disease, unspecified, without complications (principal); Z79.899 Other long term (current) drug therapy; Z88.8 Allergy status to other drugs, medicaments and biological substances; E66.9 Obesity, unspecified; Z68.34 Body mass index [BMI] 34.0-34.9, adult; F17.200 Nicotine dependence, unspecified, uncomplicated; F12.90 Cannabis use, unspecified, uncomplicated

== ENCOUNTER → 2019-10-13 | Outpatient (CLI) | payer OTHER ==
[~2019-10-13] MED LIST changes: +ACET650T15 PO; +CALC500T44 PO; +CARB200T98 PO; +CITA40TA4 PO; +ESTR2TAB2 PO; +HYDR-3713 PO; +LOPE2CA PO; +MERC50TA2 PO; +MULTCAP PO; +QC F0.52 PO
--- NOTE | 2019-10-14 15:29 | SLEEPCENT ---
DATE OF PROCEDURE: 10/13/2019 ORDERED BY: Caitie Arevalo NP Nocturnal polysomnography was performed for evaluation of sleep physiology in this patient with an abnormal nocturnal oximetry tracing. 8 hours and 8 minutes of data were reviewed. There were 405 minutes of sleep identified. Sleep latency was prolonged at 33.5 minutes. REM latency was prolonged at 252 minutes. Sleep architecture improved late in the study with interventions. Overall sleep efficiency was 83.9%. The electrocardiogram showed a sinus rhythm with PVCs. Average heart rate 68 beats per minute. EEG showed reasonably normal waveforms for awake and sleep. There were 101 respiratory events identified of 10 seconds in duration or greater for an apnea-hypopnea index of 15. The events were associated with severe oxygen desaturations into the 70s and having clearly established the presence of obstructive sleep apnea syndrome early in testing, the study was stopped shortly after midnight for the application of pressure therapy. The patient was fit with a ResMed Air Fit F20 full face mask of medium size, 4 cm of water pressure applied to the circuit and the lights were extinguished. Over the course of next several hours, pressure titration was performed to an optimal pressure of 6 cm, with which the patient slept through REM without respiratory event or oxygen desaturation. IMPRESSION: Obstructive sleep apnea syndrome (G47.33). Apnea-hypopnea index 15. RECOMMENDATIONS: Nightly use of pressure therapy 6 cm of water.
== END ==
LOC: M SLEEP 20:00
PROVIDERS: ATTEND Nurse Practitioner Adult Health
DX: G47.33 Obstructive sleep apnea (adult) (pediatric) (principal)

== ENCOUNTER 2020-06-20 08:07 | Emergency (ER) | payer OTHER ==
[~2020-06-20] VITALS: Ht 170.2 cm; Wt 101.5 kg
[2020-06-20 08:08] VITALS: BP 123/82
[2020-06-20] MEDS ORDERED: INFL10VL IV (08:19)
--- NOTE | 2020-06-20 09:04 | REP ---
INDICATION: trauma. COMPARISON: None. TECHNIQUE: Four views. FINDINGS: Four views of the right ankle demonstrate a chip fracture from the anterolateral surface of the calcaneus. There is moderate lateral Belen malleolar ankle spurring. Accessory ossicle seen adjacent to the distal fibula. There is Achilles calcaneal spurring. Ankle mortise is intact. No other fracture is seen. IMPRESSION: Avulsion chip fracture from the anterolateral surface of the calcaneus. Accessory ossicle adjacent to the lateral malleolus. Moderate lateral soft tissue swelling. Heel spur. <Electronically signed by Damian Boston > 06/20/20 [id number]
--- NOTE | 2020-06-20 09:04 | REP ---
INDICATION: fall. COMPARISON: None. FINDINGS: Four views of the right foot demonstrate moderate soft tissue swelling about the lateral aspect of the midfoot and ankle. There is a weight for thin avulsion chip fracture from the anterolateral aspect of the calcaneus visible on the frontal radiograph. Minimal calcaneocuboid spurring is present. No other for foot fracture is seen. There is Achilles calcaneal spurring. Bones joints and soft tissues are otherwise unremarkable.. . No opaque foreign body noted. IMPRESSION: Tiny avulsion chip fracture from the anterolateral surface of the calcaneus. Moderate lateral soft tissue swelling of the midfoot and ankle.. <Electronically signed by Damian Boston > 06/20/20 [id number]
== END 2020-06-20 09:27 | disposition home or self-care (01) ==
LOC: M ED 08:07
DX: S92.001A Unspecified fracture of right calcaneus, initial encounter for closed fracture (principal); X50.1XXA Overexertion from prolonged static or awkward postures, initial encounter; Y92.099 Unspecified place in other non-institutional residence as the place of occurrence of the external cause; Y93.9 Activity, unspecified; Y99.9 Unspecified external cause status; M77.31 Calcaneal spur, right foot; F41.9 Anxiety disorder, unspecified; F32.9 Major depressive disorder, single episode, unspecified; F17.200 Nicotine dependence, unspecified, uncomplicated; Z79.899 Other long term (current) drug therapy; Z88.1 Allergy status to other antibiotic agents

== ENCOUNTER → 2020-07-06 | Outpatient (REF) | payer OTHER ==
[~2020-07-06] MED LIST changes: +INFL10VL IV
[2020-07-06 13:06] LABS: BASO % 0.5 % (0.0-1.0); EOS # 0.1 10^3/uL (0.0-0.5); EOS % 0.9 % (0.0-3.0); HEMATOCRIT 45.9 % (36.0-47.0); HEMOGLOBIN 15.1 g/dl (12.0-15.5); LYMPH # 1.2 10^3/uL (1.5-5.0); LYMPH % 22.5 % (24.0-44.0); MEAN CORPUSCULAR HEMOGLOBIN 30.5 pg (27.0-33.0); MEAN CORPUSCULAR HGB CONC 32.9 g/dl (32.0-36.5); MEAN CORPUSCULAR VOLUME 92.7 fl (80.0-96.0); MONO # 0.3 10^3/uL (0.0-0.8); MONO % 6.2 % (0.0-5.0); NEUTROPHILS # 3.8 10^3/uL (1.5-8.5); NEUTROPHILS % 69.5 % (36.0-66.0); PLATELET COUNT, AUTOMATED 288 10^3/uL (150-450); RED BLOOD COUNT 4.95 10^6/uL (4.00-5.40); WHITE BLOOD COUNT 5.5 10^3/uL (4.0-10.0)
[2020-07-06 13:21] LABS: ALBUMIN 3.7 GM/DL (3.2-5.2); ALT/SGPT 58 U/L (12-78); BILIRUBIN,TOTAL 0.9 MG/DL (0.2-1.0); BLOOD UREA NITROGEN 7 MG/DL (7-18); CALCIUM LEVEL 9.5 MG/DL (8.5-10.1); CARBON DIOXIDE LEVEL 30 MEQ/L (21-32); CHLORIDE LEVEL 104 MEQ/L (98-107); CREATININE FOR GFR 0.65 MG/DL (0.55-1.30); GLOMERULAR FILTRATION RATE > 60.0 (>58); GLUCOSE, FASTING 95 MG/DL (70-100); POTASSIUM SERUM 3.6 MEQ/L (3.5-5.1); RHEUMATOID FACTOR QUANT < 10.0 IU/ML (<15.0); SODIUM LEVEL 141 MEQ/L (136-145); TOTAL PROTEIN 7.3 GM/DL (6.4-8.2)
[2020-07-06 13:42] LABS: HEPATITIS B SURFACE ANTIGEN NEGATIVE (NEGATIVE)
[2020-07-06 13:47] LABS: ERYTHROCYTE SEDIMENTATION RATE 7 mm/hr (0-20)
[2020-07-06 14:10] LABS: HEPATITIS C VIRUS ABY INDEX 0.1 INDEX (<0.8)
== END ==
LOC: M SFHCRHEU 11:16
PROVIDERS: ATTEND Internal Medicine
DX: M06.4 Inflammatory polyarthropathy (principal)

== ENCOUNTER → 2020-07-06 | Outpatient (CLI) | payer OTHER ==
--- NOTE | 2020-07-06 13:57 | REPPI ---
INDICATION: M06.4 INFLAMMATORY POLYARTHRITIS. COMPARISON: None. TECHNIQUE: Single AP view of the pelvis FINDINGS: Osseous structures and joint spaces are essentially age-appropriate. Minimal symmetric increased sclerosis to the acetabular roof with marginal spurring and subtle joint space narrowing noted. No evidence for acute or healed injury. IMPRESSION: Mild age-related changes. <Electronically signed by Baltazar Moreland > 07/06/20 [id number]
--- NOTE | 2020-07-06 13:58 | REPPI ---
INDICATION: M06.4 INFLAMMATORY POLYARTHRITIS. COMPARISON: None. TECHNIQUE: Four views of the bilateral sacroiliac joints FINDINGS: Mild symmetric periarticular sclerosis suggests mild age-related changes. IMPRESSION: Mild symmetric age-related changes. <Electronically signed by Baltazar Moreland > 07/06/20 [id number]
--- NOTE | 2020-07-06 14:00 | REPPI ---
INDICATION: M06.4 INFLAMMATORY POLYARTHRITIS COMPARISON: None. TECHNIQUE: AP, lateral, bilateral oblique, and coned-down views of the lumbar spine. FINDINGS: Alignment and lordosis maintained. Vertebral bodies are intact. Disc spaces are relatively normal/age-appropriate. No acute fracture/compression injury or subluxation. No obvious spondylolysis or spondylolisthesis.. Endplate sclerosis along with mild facet arthropathy at the L4-5 and L5-S1 levels noted. IMPRESSION: Mild degenerative changes primarily involving L4-5 and L5-S1. <Electronically signed by Baltazar Moreland > 07/06/20 [id number]
== END ==
LOC: M PLAIMG 13:29
PROVIDERS: ATTEND Internal Medicine
DX: M51.36 Other intervertebral disc degeneration, lumbar region (principal); M51.37 Other intervertebral disc degeneration, lumbosacral region; M06.4 Inflammatory polyarthropathy
CPT/HCPCS: 72110; 72190; 72202; G0463

== ENCOUNTER → 2020-09-21 | Outpatient (CLI) | payer OTHER ==
[2020-09-21 10:43] LABS: BASO % 0.4 % (0.0-1.0); EOS # 0.1 10^3/uL (0.0-0.5); EOS % 1.1 % (0.0-3.0); HEMATOCRIT 44.9 % (36.0-47.0); HEMOGLOBIN 15.1 g/dl (12.0-15.5); LYMPH # 1.2 10^3/uL (1.5-5.0); LYMPH % 24.8 % (24.0-44.0); MEAN CORPUSCULAR HEMOGLOBIN 31.6 pg (27.0-33.0); MEAN CORPUSCULAR HGB CONC 33.6 g/dl (32.0-36.5); MEAN CORPUSCULAR VOLUME 93.9 fl (80.0-96.0); MONO # 0.3 10^3/uL (0.0-0.8); MONO % 6.7 % (2.0-8.0); NEUTROPHILS # 3.1 10^3/uL (1.5-8.5); NEUTROPHILS % 66.8 % (36.0-66.0); PLATELET COUNT, AUTOMATED 260 10^3/uL (150-450); RED BLOOD COUNT 4.78 10^6/uL (4.00-5.40); WHITE BLOOD COUNT 4.6 10^3/uL (4.0-10.0)
[2020-09-21 12:01] LABS: ALBUMIN 3.5 GM/DL (3.2-5.2); ALT/SGPT 68 U/L (12-78); BILIRUBIN,TOTAL 1.1 MG/DL (0.2-1.0); BLOOD UREA NITROGEN 10 MG/DL (7-18); CARBON DIOXIDE LEVEL 32 MEQ/L (21-32); CHLORIDE LEVEL 103 MEQ/L (98-107); CREATININE FOR GFR 0.74 MG/DL (0.55-1.30); GLOMERULAR FILTRATION RATE > 60.0 (>58); GLUCOSE, FASTING 87 MG/DL (70-100); POTASSIUM SERUM 3.6 MEQ/L (3.5-5.1); SODIUM LEVEL 139 MEQ/L (136-145)
== END ==
LOC: M LAB 09:33
PROVIDERS: ATTEND Internal Medicine
DX: K50.90 Crohn's disease, unspecified, without complications (principal)

== ENCOUNTER → 2021-06-16 | Outpatient (REF) | payer OTHER ==
[~2021-06-16] MED LIST changes: -CALC500T44 PO; -ESTR2TAB2; -ESTR2TAB2 PO; +ESTR2TAB3; +ESTR2TAB3 PO; +OYST500T92 PO
[2021-06-16 12:44] LABS: BASO % 0.4 % (0.0-1.0); EOS # 0.1 10^3/uL (0.0-0.5); EOS % 2.4 % (0.0-3.0); HEMATOCRIT 44.6 % (36.0-47.0); HEMOGLOBIN 14.6 g/dl (12.0-15.5); LYMPH # 1.3 10^3/uL (1.5-5.0); LYMPH % 28.7 % (24.0-44.0); MEAN CORPUSCULAR HEMOGLOBIN 31.5 pg (27.0-33.0); MEAN CORPUSCULAR HGB CONC 32.7 g/dl (32.0-36.5); MEAN CORPUSCULAR VOLUME 96.1 fl (80.0-96.0); MONO # 0.4 10^3/uL (0.0-0.8); MONO % 9.3 % (2.0-8.0); NEUTROPHILS # 2.7 10^3/uL (1.5-8.5); PLATELET COUNT, AUTOMATED 245 10^3/uL (150-450); RED BLOOD COUNT 4.64 10^6/uL (4.00-5.40); WHITE BLOOD COUNT 4.6 10^3/uL (4.0-10.0)
[2021-06-16 13:08] LABS: ALBUMIN 3.2 GM/DL (3.2-5.2); ALT/SGPT 90 U/L (12-78); BILIRUBIN,TOTAL 0.6 MG/DL (0.2-1.0); BLOOD UREA NITROGEN 14 MG/DL (7-18); CALCIUM LEVEL 9.3 MG/DL (8.5-10.1); CARBON DIOXIDE LEVEL 29 MEQ/L (21-32); CHLORIDE LEVEL 108 MEQ/L (98-107); CREATININE FOR GFR 0.54 MG/DL (0.55-1.30); GLOMERULAR FILTRATION RATE > 60.0 (>51); GLUCOSE, FASTING 98 MG/DL (70-100); POTASSIUM SERUM 3.7 MEQ/L (3.5-5.1); SODIUM LEVEL 143 MEQ/L (136-145); TOTAL PROTEIN 6.7 GM/DL (6.4-8.2)
[2021-06-16 14:20] LABS: ERYTHROCYTE SEDIMENTATION RATE 7 mm/hr (0-30)
== END ==
LOC: M SFHCRHEU 08:27
PROVIDERS: ATTEND Internal Medicine Rheumatology
DX: M06.4 Inflammatory polyarthropathy (principal)
CPT/HCPCS: 36415; 80053; 85025; 85652; 86140; G0463

== ENCOUNTER → 2021-09-14 | Outpatient (REF) | payer OTHER ==
[~2021-09-14] MED LIST changes: -CITA40TA4; -CITA40TA4 PO; +CITA40TA7; +CITA40TA7 PO
[2021-09-14 19:02] LABS: BASO % 0.4 % (0.0-1.0); EOS # 0.1 10^3/uL (0.0-0.5); EOS % 1.4 % (0.0-3.0); HEMATOCRIT 45.4 % (36.0-47.0); HEMOGLOBIN 15.3 g/dl (12.0-15.5); LYMPH # 1.2 10^3/uL (1.5-5.0); LYMPH % 22.5 % (24.0-44.0); MEAN CORPUSCULAR HEMOGLOBIN 32.3 pg (27.0-33.0); MEAN CORPUSCULAR HGB CONC 33.7 g/dl (32.0-36.5); MEAN CORPUSCULAR VOLUME 95.8 fl (80.0-96.0); MONO # 0.5 10^3/uL (0.0-0.8); MONO % 8.2 % (2.0-8.0); NEUTROPHILS # 3.7 10^3/uL (1.5-8.5); NEUTROPHILS % 67.1 % (36.0-66.0); PLATELET COUNT, AUTOMATED 242 10^3/uL (150-450); RED BLOOD COUNT 4.74 10^6/uL (4.00-5.40); WHITE BLOOD COUNT 5.5 10^3/uL (4.0-10.0)
[2021-09-14 19:19] LABS: ALBUMIN 3.5 GM/DL (3.2-5.2); ALT/SGPT 60 U/L (12-78); BILIRUBIN,TOTAL 0.5 MG/DL (0.2-1.0); BLOOD UREA NITROGEN 10 MG/DL (7-18); CALCIUM LEVEL 9.4 MG/DL (8.5-10.1); CARBON DIOXIDE LEVEL 29 MEQ/L (21-32); CHLORIDE LEVEL 107 MEQ/L (98-107); CREATININE FOR GFR 0.56 MG/DL (0.55-1.30); GLOMERULAR FILTRATION RATE > 60.0 (>51); GLUCOSE, FASTING 84 MG/DL (70-100); POTASSIUM SERUM 3.5 MEQ/L (3.5-5.1); SODIUM LEVEL 143 MEQ/L (136-145)
[2021-09-14 20:13] LABS: ERYTHROCYTE SEDIMENTATION RATE 6 mm/hr (0-30)
== END ==
LOC: M SFHCRHEU 11:32
PROVIDERS: ATTEND Internal Medicine Rheumatology
DX: M06.4 Inflammatory polyarthropathy (principal); K50.90 Crohn's disease, unspecified, without complications; M54.50 Low back pain, unspecified; Z79.899 Other long term (current) drug therapy

== ENCOUNTER → 2022-01-11 | Outpatient (CLI) | payer MEDICARE ==
[~2022-01-11] MED LIST changes: +ACET-897 PO; +SULF1TAB30 PO; +SULF500T2; +VANC1CAP7 PO; +VITMTA PO
== END ==
LOC: M PLAIMG 08:08
PROVIDERS: ATTEND Internal Medicine Rheumatology
DX: M06.4 Inflammatory polyarthropathy (principal); K50.90 Crohn's disease, unspecified, without complications; M54.50 Low back pain, unspecified; Z79.899 Other long term (current) drug therapy

== ENCOUNTER 2022-03-03 17:28 | Emergency (ER) | payer MEDICARE ==
[~2022-03-03] VITALS: Ht 167.6 cm; Wt 98.2 kg
[2022-03-03] MEDS ORDERED: NS 1,000 ML IV ONE (18:10)
[2022-03-03] MEDS ORDERED: ONDANSETRON 4MG 2ML VIAL IV ONE (18:10)
[2022-03-03] MEDS ORDERED: MORPHINE 4 MG/ML 1ML VIAL/SYRINGE IV ONE (18:15)
[2022-03-03] MEDS ORDERED: ISOVUE-370 76% 100ML VIAL As Ordered ONE (18:53)
[2022-03-03 18:57] LABS: BASO % 0.4 % (0.0-1.0); EOS # 0.1 10^3/uL (0.0-0.5); EOS % 0.6 % (0.0-3.0); HEMATOCRIT 45.7 % (36.0-47.0); HEMOGLOBIN 15.6 g/dl (12.0-15.5); LYMPH # 0.9 10^3/uL (1.5-5.0); LYMPH % 8.3 % (24.0-44.0); MEAN CORPUSCULAR HEMOGLOBIN 32.7 pg (27.0-33.0); MEAN CORPUSCULAR HGB CONC 34.1 g/dl (32.0-36.5); MEAN CORPUSCULAR VOLUME 95.8 fl (80.0-96.0); MONO # 0.6 10^3/uL (0.0-0.8); MONO % 5.3 % (2.0-8.0); NEUTROPHILS # 9.4 10^3/uL (1.5-8.5); PLATELET COUNT, AUTOMATED 259 10^3/uL (150-450); RED BLOOD COUNT 4.77 10^6/uL (4.00-5.40)
[2022-03-03] MEDS: GASTROGRAFIN SOLUTION 30ML PO SCH ×2 (19:13→19:30)
[2022-03-03] MEDS ORDERED: KETOROLAC 30 MG/ML 1ML VIAL IV ONE (19:35)
[2022-03-03 19:39] LABS: ALBUMIN 4.1 GM/DL (3.2-5.2); ALT/SGPT 29 U/L (12-78); BILIRUBIN,DIRECT 0.1 MG/DL (0.0-0.2); BILIRUBIN,TOTAL 0.8 MG/DL (0.2-1.0); BLOOD UREA NITROGEN 21 MG/DL (7-18); CALCIUM LEVEL 10.1 MG/DL (8.5-10.1); CARBON DIOXIDE LEVEL 26 MEQ/L (21-32); CHLORIDE LEVEL 106 MEQ/L (98-107); CREATININE FOR GFR 0.62 MG/DL (0.55-1.30); GLOMERULAR FILTRATION RATE > 60.0 (>51); GLUCOSE, FASTING 100 MG/DL (70-100); LIPASE 142 U/L (73-393); POTASSIUM SERUM 3.8 MEQ/L (3.5-5.1); SODIUM LEVEL 139 MEQ/L (136-145)
[2022-03-03 20:32] LABS: AMORPHOUS SEDIMENT, URINE LARGE AMOUNT (NEGATIVE); BACTERIA, URINE SMALL AMOUNT; HYALINE CAST, URINE NONE SEEN /lpf (0-1); SQUAMOUS EPITHELIAL CELL URINE NONE SEEN /hpf (SMALL AMT)
[2022-03-03] MEDS ORDERED: ONDA4TAB6 PO ×2 (23:11→23:24)
[2022-03-03] MEDS ORDERED: HYDR-3713 PO ×2 (23:11→23:24)
[2022-03-03] MEDS ORDERED: POTASSIUM CHLORIDE 10MEQ SR TABLET PO ONE (23:15)
[2022-03-03] MEDS ORDERED: ONDANSETRON 4MG ORAL DISINTEGRATING TAB PO ONE (23:15)
[2022-03-03] MEDS ORDERED: NORCO, ANEXSIA 5/325MG TABLET (HYDROcodone/ACETAMINOPHEN) PO ONE (23:15)
[2022-03-03 23:30] VITALS: BP 144/71
== END 2022-03-03 23:33 | disposition home or self-care (01) ==
LOC: M ED 17:28
DX: A08.4 Viral intestinal infection, unspecified (principal); E87.6 Hypokalemia; E86.0 Dehydration; F41.9 Anxiety disorder, unspecified; F32.9 Major depressive disorder, single episode, unspecified; Z87.442 Personal history of urinary calculi; Z86.19 Personal history of other infectious and parasitic diseases; F17.200 Nicotine dependence, unspecified, uncomplicated; F12.10 Cannabis abuse, uncomplicated; Z79.899 Other long term (current) drug therapy; Z88.1 Allergy status to other antibiotic agents
CPT/HCPCS: 71045; 74177; 80047; 80048; 80076; 81000; 81015; 82150; 83605; 83690; 85025; 87040; 87086; 87507; 93005; 93041; 96361; 96374; 96375; 99284; J1885; J2405; Q9967

== ENCOUNTER 2022-03-29 14:45 | Inpatient (IN) | payer MEDICARE ==
[~2022-03-29] VITALS: Ht 167.6 cm; Wt 100.0 kg
[~2022-03-29 14:45] MED LIST changes: +ONDA4TAB6 PO
[2022-03-29 15:59] LABS: BASO % 0.3 % (0.0-1.0); EOS # 0.1 10^3/uL (0.0-0.5); HEMOGLOBIN 15.7 g/dl (12.0-15.5); LYMPH # 1.1 10^3/uL (1.5-5.0); MEAN CORPUSCULAR HEMOGLOBIN 33.5 pg (27.0-33.0); MEAN CORPUSCULAR HGB CONC 34.1 g/dl (32.0-36.5); MEAN CORPUSCULAR VOLUME 98.1 fl (80.0-96.0); MONO # 0.5 10^3/uL (0.0-0.8); MONO % 6.2 % (2.0-8.0); NEUTROPHILS # 6.9 10^3/uL (1.5-8.5); NEUTROPHILS % 79.2 % (36.0-66.0); PLATELET COUNT, AUTOMATED 216 10^3/uL (150-450); RED BLOOD COUNT 4.69 10^6/uL (4.00-5.40); WHITE BLOOD COUNT 8.7 10^3/uL (4.0-10.0)
[2022-03-29] MEDS ORDERED: NS 1,000 ML IV ONE (16:20)
[2022-03-29] MEDS ORDERED: methylPREDNISolone 125MG 2ML VIAL IV ONE (16:20)
[2022-03-29] MEDS ORDERED: ISOVUE-370 76% 100ML VIAL As Ordered ONE (16:34)
[2022-03-29 17:09] LABS: ALBUMIN 3.9 GM/DL (3.2-5.2); ALT/SGPT 34 U/L (12-78); BILIRUBIN,DIRECT 0.2 MG/DL (0.0-0.2); BILIRUBIN,TOTAL 0.7 MG/DL (0.2-1.0); BLOOD UREA NITROGEN 10 MG/DL (7-18); CALCIUM LEVEL 10.2 MG/DL (8.5-10.1); CARBON DIOXIDE LEVEL 32 MEQ/L (21-32); CHLORIDE LEVEL 106 MEQ/L (98-107); CREATININE FOR GFR 0.67 MG/DL (0.55-1.30); GLOMERULAR FILTRATION RATE > 60.0 (>51); GLUCOSE, FASTING 102 MG/DL (70-100); LIPASE 83 U/L (73-393); POTASSIUM SERUM 4.1 MEQ/L (3.5-5.1); SODIUM LEVEL 143 MEQ/L (136-145); TOTAL PROTEIN 7.4 GM/DL (6.4-8.2)
[2022-03-29 19:34] LABS: RSV AMPLIFICATION NEGATIVE (NEGATIVE)
[2022-03-29] MEDS ORDERED: HOME MED LIST COMPLETE! XX SCH (19:45)
[2022-03-29] MEDS ORDERED: ACETAMINOPHEN TAB 650MG DOSE (2X325MG) PO PRN (20:00)
[2022-03-29] MEDS ORDERED: PROMETHAZINE 25MG/ML 1ML VIAL IV PRN (20:00)
[2022-03-29] MEDS: NS 1,000 ML IV SCH (20:32)
[2022-03-29] MEDS: traMADol 50 MG TAB PO PRN (20:32)
[2022-03-29 22:26] VITALS: BP 119/73
[2022-03-29] MEDS: methylPREDNISolone 40MG 1ML VIAL IV SCH (23:45)
[2022-03-30] MEDS: NS 1,000 ML IV SCH (03:52)
[2022-03-30 05:53] LABS: HEMATOCRIT 40.9 % (36.0-47.0); MEAN CORPUSCULAR HEMOGLOBIN 32.5 pg (27.0-33.0); MEAN CORPUSCULAR HGB CONC 33.5 g/dl (32.0-36.5); MEAN CORPUSCULAR VOLUME 97.1 fl (80.0-96.0); PLATELET COUNT, AUTOMATED 194 10^3/uL (150-450); RED BLOOD COUNT 4.21 10^6/uL (4.00-5.40); WHITE BLOOD COUNT 6.4 10^3/uL (4.0-10.0)
[2022-03-30 05:54] LABS: HEMOGLOBIN 13.7 g/dl (12.0-15.5)
[2022-03-30 06:00] VITALS: BP 101/56
[2022-03-30] MEDS: traMADol 50 MG TAB PO PRN ×2 (06:20→23:31)
[2022-03-30 06:28] LABS: ALT/SGPT 24 U/L (12-78); BILIRUBIN,TOTAL 0.6 MG/DL (0.2-1.0); BLOOD UREA NITROGEN 8 MG/DL (7-18); CALCIUM LEVEL 8.6 MG/DL (8.5-10.1); CARBON DIOXIDE LEVEL 25 MEQ/L (21-32); CHLORIDE LEVEL 109 MEQ/L (98-107); CREATININE FOR GFR 0.51 MG/DL (0.55-1.30); GLOMERULAR FILTRATION RATE > 60.0 (>51); GLUCOSE, FASTING 131 MG/DL (70-100); MAGNESIUM LEVEL 1.5 MG/DL (1.8-2.4); SODIUM LEVEL 140 MEQ/L (136-145); TOTAL PROTEIN 5.8 GM/DL (6.4-8.2)
[2022-03-30] MEDS: methylPREDNISolone 40MG 1ML VIAL IV SCH ×3 (08:31→23:22)
[2022-03-30] MEDS ORDERED: ENOXAPARIN 40MG/0.4ML SYRINGE (J1650 PER 10MG) SC SCH (09:00)
[2022-03-30] MEDS: MAGNESIUM OXIDE 400MG TAB (MAG-OX) PO SCH ×2 (09:25→21:24)
[2022-03-30 14:00] VITALS: BP 113/73
[2022-03-30] MEDS: sulfaSALAzine 500 MG TABEC PO SCH ×2 (16:27→21:24)
[2022-03-30 21:00] VITALS: BP 119/71
[2022-03-31 04:00] VITALS: BP 117/74
[2022-03-31 05:49] LABS: HEMATOCRIT 37.7 % (36.0-47.0); HEMOGLOBIN 13.1 g/dl (12.0-15.5); MEAN CORPUSCULAR HEMOGLOBIN 33.4 pg (27.0-33.0); MEAN CORPUSCULAR HGB CONC 34.7 g/dl (32.0-36.5); MEAN CORPUSCULAR VOLUME 96.2 fl (80.0-96.0); PLATELET COUNT, AUTOMATED 172 10^3/uL (150-450); RED BLOOD COUNT 3.92 10^6/uL (4.00-5.40); WHITE BLOOD COUNT 6.7 10^3/uL (4.0-10.0)
[2022-03-31 06:36] LABS: BLOOD UREA NITROGEN 9 MG/DL (7-18); CALCIUM LEVEL 8.7 MG/DL (8.5-10.1); CARBON DIOXIDE LEVEL 28 MEQ/L (21-32); CHLORIDE LEVEL 107 MEQ/L (98-107); CREATININE FOR GFR 0.54 MG/DL (0.55-1.30); GLOMERULAR FILTRATION RATE > 60.0 (>51); GLUCOSE, FASTING 137 MG/DL (70-100); POTASSIUM SERUM 3.8 MEQ/L (3.5-5.1); SODIUM LEVEL 142 MEQ/L (136-145)
[2022-03-31] MEDS: sulfaSALAzine 500 MG TABEC PO SCH (08:33)
[2022-03-31] MEDS: MAGNESIUM OXIDE 400MG TAB (MAG-OX) PO SCH (08:34)
[2022-03-31] MEDS ORDERED: predniSONE 20 MG TAB PO SCH (09:00)
[2022-03-31] MEDS ORDERED: ACET1TAB55 PO (09:24)
[2022-03-31] MEDS ORDERED: HYDR-3713 PO (09:24)
[2022-03-31] MEDS ORDERED: PRED10PA PO (09:24)
== END 2022-03-31 10:35 | disposition home or self-care (01) | DRG 386 ==
LOC: M ED 14:45 → M ED INP 19:56 → M MSPAV 22:21
PROVIDERS: ADMIT Family Medicine; ATTEND Student in an Organized Health Care Education/Training Program
DX: K50.90 Crohn's disease, unspecified, without complications (principal); K56.600 Partial intestinal obstruction, unspecified as to cause; Z68.36 Body mass index [BMI] 36.0-36.9, adult; F17.210 Nicotine dependence, cigarettes, uncomplicated; E66.9 Obesity, unspecified; E83.42 Hypomagnesemia; Z79.899 Other long term (current) drug therapy; Z88.8 Allergy status to other drugs, medicaments and biological substances

== ENCOUNTER 2022-06-27 18:41 | Emergency (ER) | payer MEDICARE ==
[~2022-06-27] VITALS: Ht 167.6 cm; Wt 98.2 kg
[~2022-06-27 18:41] MED LIST changes: +ACET1TAB55 PO; +PRED10PA PO
[2022-06-27 20:25] LABS: BASO % 0.5 % (0.0-1.0); EOS # 0.1 10^3/uL (0.0-0.5); EOS % 1.4 % (0.0-3.0); HEMATOCRIT 46.5 % (36.0-47.0); HEMOGLOBIN 15.9 g/dl (12.0-15.5); LYMPH # 1.6 10^3/uL (1.5-5.0); LYMPH % 28.8 % (24.0-44.0); MEAN CORPUSCULAR HEMOGLOBIN 32.4 pg (27.0-33.0); MEAN CORPUSCULAR HGB CONC 34.2 g/dl (32.0-36.5); MEAN CORPUSCULAR VOLUME 94.9 fl (80.0-96.0); MONO # 0.4 10^3/uL (0.0-0.8); MONO % 7.7 % (2.0-8.0); NEUTROPHILS # 3.4 10^3/uL (1.5-8.5); NEUTROPHILS % 61.4 % (36.0-66.0); PLATELET COUNT, AUTOMATED 241 10^3/uL (150-450); WHITE BLOOD COUNT 5.6 10^3/uL (4.0-10.0)
[2022-06-27 20:48] LABS: LIPASE 39 U/L (12-53)
[2022-06-27 20:49] LABS: AMYLASE 45 U/L (30-118)
[2022-06-27 20:50] LABS: BILIRUBIN,DIRECT 0.1 MG/DL (<0.4)
[2022-06-27 21:01] LABS: ALBUMIN 3.5 G/DL (3.2-5.2); ALKALINE PHOSPHATASE 66 U/L (46-116); ALT/SGPT 19 U/L (7.0-40); AST/SGOT 23 U/L (<34); BILIRUBIN,TOTAL 0.5 MG/DL (0.3-1.2); BLOOD UREA NITROGEN 7 MG/DL (9-23); CALCIUM LEVEL 9.4 MG/DL (8.5-10.1); CARBON DIOXIDE LEVEL 29 MMOL/L (20-31); CHLORIDE LEVEL 104 MMOL/L (98-107); CREATININE FOR GFR 0.59 MG/DL (0.55-1.30); GLOMERULAR FILTRATION RATE > 60.0 (>51); GLUCOSE, FASTING 89 MG/DL (60-100); POTASSIUM SERUM 3.6 MMOL/L (3.5-5.1); SODIUM LEVEL 140 MMOL/L (136-145); TOTAL PROTEIN 7.3 G/DL (5.7-8.2)
[2022-06-28 02:33] VITALS: BP 136/81
[2022-06-28] MEDS ORDERED: HYDR-3713 PO (02:33)
[2022-06-28] MEDS ORDERED: FLOM0.4C39 PO (02:33)
[2022-06-28] MEDS ORDERED: KETOROLAC 60MG 2ML VIAL IM ONE (02:35)
[2022-06-28] MEDS ORDERED: TAMSULOSIN 0.4 MG CAP PO ONE (02:35)
== END 2022-06-28 02:59 | disposition home or self-care (01) ==
LOC: M ED 18:41
DX: N13.2 Hydronephrosis with renal and ureteral calculous obstruction (principal); K50.90 Crohn's disease, unspecified, without complications; Z88.1 Allergy status to other antibiotic agents; Z79.899 Other long term (current) drug therapy
CPT/HCPCS: 36415; 74176; 80048; 80076; 81000; 82150; 83690; 85025; 87086; 96372; 99283; J1885

== ENCOUNTER → 2022-07-31 | Outpatient (REF) | payer MEDICARE ==
[~2022-07-31] MED LIST changes: +FLOM0.4C39 PO
[2022-08-03 16:09] LABS: CA Oxalate Dihy 50 % (.); Ca Ox Monohydrate 40 % (.); Size 5x4 mm (.)
== END ==
LOC: M SMT 12:52
PROVIDERS: ATTEND Physician Assistant
DX: N20.1 Calculus of ureter (principal)

== ENCOUNTER → 2022-08-20 | Outpatient (CLI) | payer MEDICARE ==
[~2022-08-20] MED LIST changes: +PROBCAP14 PO
== END ==
LOC: M LABSMTC 10:59
PROVIDERS: ATTEND Anesthesiology
DX: Z01.812 Encounter for preprocedural laboratory examination (principal); Z20.822 Contact with and (suspected) exposure to COVID-19

== ENCOUNTER 2022-08-24 08:55 | Day surgery (SDC) | payer MEDICARE ==
[~2022-08-24] VITALS: Ht 167.6 cm; Wt 95.7 kg
[~2022-08-24 08:55] MED LIST changes: +ceFAZolin SOD 2 GM in IV 1 EA IV ONE
[2022-08-24] MEDS ORDERED: LIDOCAINE 2% 100MG/5ML SDV (FOR ANES.) As Ordered ONE (09:00)
[2022-08-24] MEDS ORDERED: MIDAZOLAM INJ 2MG/2ML VIAL As Ordered ONE (09:00)
[2022-08-24] MEDS ORDERED: propofoL 500 MG/50 ML VIAL As Ordered ONE (09:00)
[2022-08-24] MEDS ORDERED: fentaNYL 100 MCG/2 ML INJECTION As Ordered ONE (09:00)
[2022-08-24] MEDS: LR 1,000 ML IV SCH ×2 (10:11→10:20)
[2022-08-24] MEDS ORDERED: HYDR-3713 PO (12:20)
[2022-08-24 13:45] VITALS: BP 109/71
== END 2022-08-24 13:50 | disposition home or self-care (01) ==
LOC: M SDC 08:55
PROVIDERS: ATTEND Urology
DX: N20.0 Calculus of kidney (principal); R51.9 Headache, unspecified; F32.A Depression, unspecified; G47.33 Obstructive sleep apnea (adult) (pediatric); Z88.1 Allergy status to other antibiotic agents; F12.10 Cannabis abuse, uncomplicated; F17.210 Nicotine dependence, cigarettes, uncomplicated
CPT/HCPCS: 50590; 74018; J0690; J2250; J3010

== ENCOUNTER → 2022-09-14 | Outpatient (REF) | payer MEDICARE ==
[~2022-09-14] MED LIST changes: -ceFAZolin SOD 2 GM in IV 1 EA IV ONE
[2022-09-14 18:22] LABS: APPEARANCE, URINE CLOUDY (CLEAR); BACTERIA, URINE AUTO NEGATIVE (NEGATIVE); BILIRUBIN, URINE AUTO NEGATIVE (NEGATIVE); BLOOD, URINE BLOOD 2+ (NEGATIVE); CALCIUM OXALATE CRYSTALS LARGE; COLOR, URINE AMBER (YELLOW); GLUCOSE, URINE (UA) AUTO NEGATIVE (NEGATIVE); KETONE, URINE AUTO TRACE mg/dL (NEGATIVE); LEUKOCYTE ESTERASE, URINE AUTO TRACE (NEGATIVE); MUCUS, URINE LARGE (NEGATIVE); NITRITE, URINE AUTO NEGATIVE (NEGATIVE); PROTEIN, URINE AUTO 2+ mg/dL (NEGATIVE); RBC, URINE AUTO 171 /HPF (0-3); SPECIFIC GRAVITY URINE AUTO 1.029 (1.002-1.035); SQUAMOUS EPITHELIAL CELL UR AU 9 /HPF (0-6); WBC, URINE AUTO 21 /HPF (0-3)
[2022-09-20 19:10] LABS: CA Oxalate Dihy 60 % (.); Ca Ox Monohydrate 30 % (.); Size 3x3 mm (.)
== END ==
LOC: M SMT 16:47
PROVIDERS: ATTEND Physician Assistant
DX: Z01.818 Encounter for other preprocedural examination (principal); N20.0 Calculus of kidney

== ENCOUNTER → 2022-09-20 | Day surgery (SDC) | payer MEDICARE ==
[~2022-09-20] VITALS: Ht 167.6 cm; Wt 98.4 kg
[~2022-09-20] MED LIST changes: +ACETAMINOPHEN 1000MG 100ML IV BAG As Ordered ONE; +HYDROMORPHONE HCL 0.5 MG/ 0.5 ML SYRINGE IV PRN; +ISOVUE-300 61% 100ML VIAL As Ordered ONE; +LIDOCAINE 2% 100MG/5ML SDV (FOR ANES.) As Ordered ONE; +LR 1,000 ML IV SCH; +MIDAZOLAM INJ 2MG/2ML VIAL As Ordered ONE; +ONDANSETRON 4MG 2ML VIAL As Ordered ONE; +ONDANSETRON 4MG 2ML VIAL IV PRN; +ceFAZolin SOD 2 GM in IV 1 EA IV ONE; +fentaNYL 100 MCG/2 ML INJECTION As Ordered ONE; +fentaNYL 100 MCG/2 ML INJECTION IV PRN; +oxyCODONE 5MG TAB PO PRN; +propofoL 200 MG/20 ML VIAL As Ordered ONE
[2022-09-20 15:10] VITALS: BP 123/78
[2022-09-26 17:10] LABS: CA Oxalate Dihy 60 % (.); Ca Ox Monohydrate 30 % (.); Size 4x3 mm (.)
== END | disposition home or self-care (01) ==
LOC: M SDC 09:41
PROVIDERS: ATTEND Urology
DX: N20.0 Calculus of kidney (principal); K50.90 Crohn's disease, unspecified, without complications; K57.92 Diverticulitis of intestine, part unspecified, without perforation or abscess without bleeding; G43.909 Migraine, unspecified, not intractable, without status migrainosus; Z79.899 Other long term (current) drug therapy; G47.33 Obstructive sleep apnea (adult) (pediatric); F41.9 Anxiety disorder, unspecified; F32.A Depression, unspecified; Z88.1 Allergy status to other antibiotic agents; F17.210 Nicotine dependence, cigarettes, uncomplicated
CPT/HCPCS: 52356; 74420; 82365; C1769; C1894; C2617; J0131; J0690; J1100; J2250; J2405; J3010; Q9967

== ENCOUNTER → 2023-05-11 | Outpatient (REF) | payer MEDICARE, MEDICAID ==
[~2023-05-11] MED LIST changes: -ACETAMINOPHEN 1000MG 100ML IV BAG As Ordered ONE; -HYDROMORPHONE HCL 0.5 MG/ 0.5 ML SYRINGE IV PRN; -ISOVUE-300 61% 100ML VIAL As Ordered ONE; -LIDOCAINE 2% 100MG/5ML SDV (FOR ANES.) As Ordered ONE; -LR 1,000 ML IV SCH; -MIDAZOLAM INJ 2MG/2ML VIAL As Ordered ONE; -ONDANSETRON 4MG 2ML VIAL As Ordered ONE; -ONDANSETRON 4MG 2ML VIAL IV PRN; -ceFAZolin SOD 2 GM in IV 1 EA IV ONE; -fentaNYL 100 MCG/2 ML INJECTION As Ordered ONE; -fentaNYL 100 MCG/2 ML INJECTION IV PRN; -oxyCODONE 5MG TAB PO PRN; -propofoL 200 MG/20 ML VIAL As Ordered ONE
== END ==
LOC: M SFHCRHEU 15:28
PROVIDERS: ATTEND Internal Medicine Rheumatology
DX: M06.4 Inflammatory polyarthropathy (principal); K50.90 Crohn's disease, unspecified, without complications; Z79.899 Other long term (current) drug therapy

== ENCOUNTER 2023-12-17 12:13 | Day surgery (SDC) | payer MEDICARE, MEDICAID ==
[~2023-12-17] VITALS: Ht 167.6 cm; Wt 114.3 kg
[~2023-12-17 12:13] MED LIST changes: +CARB-115 PO; -CARB200T98 PO; +COLE625T PO; +ESTR1TAB PO; +FLUTISP; +GABA-1171 PO; +NS 1,000 ML IV ONE; +OMEP40CA5 PO; +ONDA-282 PO; -ONDA4TAB6 PO; +PRED10TA2 PO; +THERTAB52 PO; +XALA0.007 OU
[2023-12-17] MEDS ORDERED: fentaNYL 100 MCG/2 ML INJECTION As Ordered ONE (14:19)
[2023-12-17] MEDS ORDERED: LIDOCAINE 2% 100MG/5ML SDV (FOR ANES.) As Ordered ONE (14:20)
[2023-12-17 14:42] VITALS: TEMP 99.9
[2023-12-17 15:04] VITALS: BP 113/57; O2SAT 97
== END 2023-12-17 15:12 | disposition home or self-care (01) ==
LOC: M OPP 12:13
PROVIDERS: ATTEND Internal Medicine Gastroenterology
DX: K64.8 Other hemorrhoids (principal); K91.89 Other postprocedural complications and disorders of digestive system; K50.00 Crohn's disease of small intestine without complications; Z87.19 Personal history of other diseases of the digestive system; R93.3 Abnormal findings on diagnostic imaging of other parts of digestive tract; R12 Heartburn; F17.200 Nicotine dependence, unspecified, uncomplicated; G47.30 Sleep apnea, unspecified; Z99.89 Dependence on other enabling machines and devices; Z79.1 Long term (current) use of non-steroidal anti-inflammatories (NSAID); Z79.52 Long term (current) use of systemic steroids; Z79.620 Long term (current) use of immunosuppressive biologic; Z79.899 Other long term (current) drug therapy; Z79.818 Long term (current) use of other agents affecting estrogen receptors and estrogen levels; Z88.1 Allergy status to other antibiotic agents
CPT/HCPCS: 43235; 45380; 88305; J3010

== ENCOUNTER → 2023-12-27 | Outpatient (REF) | payer MEDICARE, MEDICAID ==
[~2023-12-27] MED LIST changes: -NS 1,000 ML IV ONE
[2023-12-27 19:17] LABS: BASO % 0.4 % (0.0-1.0); EOS # 0.1 10^3/uL (0.0-0.5); EOS % 2.1 % (0.0-3.0); HEMATOCRIT 47.3 % (36.0-47.0); HEMOGLOBIN 16.1 g/dl (12.0-15.5); LYMPH # 1.9 10^3/uL (1.5-5.0); LYMPH % 34.9 % (24.0-44.0); MEAN CORPUSCULAR HEMOGLOBIN 32.1 pg (27.0-33.0); MEAN CORPUSCULAR VOLUME 94.4 fl (80.0-96.0); MONO # 0.4 10^3/uL (0.0-0.8); MONO % 8.3 % (2.0-8.0); NEUTROPHILS # 2.9 10^3/uL (1.5-8.5); NEUTROPHILS % 54.1 % (36.0-66.0); PLATELET COUNT, AUTOMATED 231 10^3/uL (150-450); RED BLOOD COUNT 5.01 10^6/uL (4.00-5.40); WHITE BLOOD COUNT 5.3 10^3/uL (4.0-10.0)
[2023-12-27 19:24] LABS: ERYTHROCYTE SEDIMENTATION RATE 15 mm/hr (0-30)
[2023-12-27 19:42] LABS: C REACTIVE PROTEIN QUANTITATIV < 0.40 MG/DL (<1.0)
[2023-12-27 19:44] LABS: ALBUMIN 3.4 G/DL (3.2-5.2); ALKALINE PHOSPHATASE 83 U/L (46-116); ALT/SGPT 24 U/L (7.0-40); AST/SGOT 9 U/L (<34); BILIRUBIN,TOTAL 0.4 MG/DL (0.3-1.2); BLOOD UREA NITROGEN 12 MG/DL (9-23); CALCIUM LEVEL 9.1 MG/DL (8.5-10.1); CARBON DIOXIDE LEVEL 28 MMOL/L (20-31); CHLORIDE LEVEL 107 MMOL/L (98-107); CREATININE FOR GFR 0.63 MG/DL (0.55-1.30); GLOMERULAR FILTRATION RATE > 60.0 (>51); GLUCOSE, FASTING 89 MG/DL (60-100); POTASSIUM SERUM 3.4 MMOL/L (3.5-5.1); SODIUM LEVEL 143 MMOL/L (136-145); TOTAL PROTEIN 6.6 G/DL (5.7-8.2)
== END ==
LOC: M SFHCRHEU 15:02
PROVIDERS: ATTEND Internal Medicine Rheumatology
DX: M06.4 Inflammatory polyarthropathy (principal); K50.90 Crohn's disease, unspecified, without complications; Z79.899 Other long term (current) drug therapy